=== PATIENT | female | born 1960 | race Caucasian/White ===

== ENCOUNTER 2016-12-30 18:37 | Emergency (ER) | payer SELFPAY ==
--- OUTSIDE RECORDS SUMMARY | 2016-12-30 18:44 | XMS REPORT | Continuity of Care Document ---
Author Author [facility] Address Unknown Phone Unavailable Allergies Medications Problems Date Dx Coded Attending Type Code Diagnosis Diagnosed By 07/17/2009 ZEHRA IZAGUIRRE MD 388.30 ringing in the ears (tinnitus) 07/17/2009 ZEHRA IZAGUIRRE MD 461.0 SINUSITIS ACUTE MAXILLARY 03/29/2011 ZEHRA IZAGUIRRE MD 506.0 BRONCHITIS AND PNEUMONITIS DUE TO FUMES AND VAPORS 03/29/2011 ZEHRA IZAGUIRRE MD V15.05 PERSONAL HISTORY OF ALLERGY TO OTHER FOODS 10/07/2013 ZEHRA IZAGUIRRE MD 465.9 UPPER RESPIRATORY INFECTION Procedures Results Encounters ACCT No. Visit Date/Time Discharge Status Pt. Type Provider Facility Loc./Unit Complaint [id number] 10/07/2013 11:21:00 10/07/2013 23: 59:59 CLS Outpatient ZEHRA IZAGUIRRE MD
--- NOTE | 2016-12-31 05:37 | ED GU-Female ---
General Stated Complaint: POSSIBLY PREG, HAD TUBES TIED 17 YEARS AGO Source: patient History of Present Illness Time seen by provider: 19:05 Initial Comments PT STATES SHE HAD A POSITIVE TEST 3 MONTHS AGO LMP WAS A YEAR AGO--JANUARY 2016 PT STATES SHE HAD A TUBAL LIGATION 16 YEARS AGO PT HAS NOT SEEN A DR OR ATTEMPTED TO SEE ANY DR. AT ANY TIME FOR THIS PROBLEM-- STATES SHE JUST DECIDED TO COME HERE TONIGHT FOR A TEST AND HER FIRST VISIT PT HAS ALSO HAD NAUSEA, AND DIARRHEA AND MILD MID ABDOMINAL PAIN AND SUBJECTIVE FEVER AND A RUNNY NOSE FOR 8-9 MONTHS--HAS NOT SOUGHT CARE FOR THOSE COMPLAINTS AT ANY TIME EITHER. NONE OF THESE SYMPTOMS ARE PRESENT TODAY PT STATES SHE QUIT TAKING ALL OF HER MEDICATIONS 3 MONTHS AGO, BECAUSE OF THE POSITIVE TEST PCP: DR. Midny CORONA Constitutional: see HPI fever EENTM: nose congestion see HPI Respiratory: no symptoms reported Cardiovascular: no symptoms reported Gastrointestinal: see HPI abdominal pain diarrheaNo loss of appetite, nauseaNo vomiting Genitourinary: see HPI Musculoskeletal: no symptoms reported Skin: no symptoms reported Psychiatric/Neurological: No Symptoms Reported Endocrine: No Symptoms Reported Hematologic/Lymphatic: No Symptoms Reported Past Faxxakm-Ofsrad-Hzrmba Hx Patient Social History Alcohol Use: Past History (HISTORY OF ABUSE/HEAVY USE) Recreational Drug Use: Yes (THC, + IV METH USE) Smoking Status: Never a Smoker 2nd Hand Smoke Exposure: Yes Recent Foreign Travel: No Contact w/Someone Who Travel: No Surgeries HX Surgeries: Yes (EAR DRUM REPAIR) Surgeries: Ear Surgery, Gallbladder, Tubal Ligation Respiratory Hx Respiratory Disorders: Yes Respiratory Disorders: Asthma, Pneumonia Cardiovascular Hx Cardiac Disorders: Yes Cardiac Disorders: Hypertension Neurological Hx Neurological Disorders: No Reproductive System Hx : 2 Hx Para: 2 Hx Total # of Abortions (Spona: 0 Genitourinary Hx Genitourinary Disorders: No Gastrointestinal Hx Gastrointestinal Disorders: Yes (S/P SEBAS) Gastrointestinal Disorders: Gall Bladder Disease Musculoskeletal Hx Musculoskeletal Disorders: Yes (CHRONIC KNEE PAIN) Musculoskeletal Disorders: Chronic Back Pain Endocrine Hx Endocrine Disorders: Yes Endocrine Disorders: Diabetes, Non-Insulin dep HEENT HX ENT Disorders: No Cancer Hx Cancer: No Psychosocial Hx Psychiatric Problems: No Integumentary HX Skin/Integumentary Disorder: No Blood Transfusions Hx Blood Disorders: No Physical Exam Vital Signs Capillary Refill : General Appearance: WD/WN no apparent distress HEENT: PERRL/EOMI Neck: normal inspection Cardiovascular: regular rate, rhythm no murmur Respiratory: normal breath sounds Gastrointestinal: normal bowel sounds non tender soft no organomegaly Back: no CVA tenderness Extremities: normal inspection 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 Referrals: PHYLLIS VAZQUEZ MD (PCP/Family) Primary Care Physician Patient Instructions: Early Menopause (Primary Ovarian Insufficiency), Menstruation Add. Discharge Instructions: FOLLOW UP WITH YOUR DR THIS WEEK FOR FURTHER CARE RESTART ALL OF YOUR MEDICATIONS AND TAKE PRESCRIBED MARY MUÑOZ DO Dec 31, 2016 05:37
== END 2016-12-30 18:51 | disposition home or self-care (01) ==
LOC: EDUNIT# 18:37 → ER 18:41
DX: N91.2 Amenorrhea, unspecified (principal); I10 Essential (primary) hypertension; E11.9 Type 2 diabetes mellitus without complications